=== PATIENT | female | born 1970 | race African-American/Black ===

== ENCOUNTER 2017-04-15 10:54 | Inpatient (IN) | payer OTHER ==
[~2017-04-15] VITALS: Ht 160 cm; Wt 77.1 kg
[~2017-04-15 10:54] MED LIST: BACTRIM DS1 TAB PO
[2017-04-15 13:04] LABS: BASOPHIL % 2.7 % (0-2); PLATELET COUNT 426 x10^3mcL (130-400); RED CELL DISTRIBUTION WIDTH 17.7 % (11.5-14.5)
[2017-04-15 13:10] LABS: CALCIUM 8.9 mg/dL (8.5-10.1); CARBON DIOXIDE 19.1 mmol/L (21-32); CREATININE SERUM 1.1 mg/dL (0.6-1.0); POTASSIUM SERUM 3.7 mmol/L (3.5-5.1)
[2017-04-15 13:14] LABS: ALBUMIN 3.4 g/dL (3.4-5.0); BILIRUBIN TOTAL 0.37 mg/dL (0.20-1.00); PHOSPHOROUS 1.3 mg/dL (2.5-4.9); TOTAL PROTEIN, SERUM 7.5 g/dL (6.4-8.2); URIC ACID 4.8 mg/dL (2.6-6.0)
[2017-04-15] MEDS ORDERED: NATURAL IRON65 MG PO (15:16)
[2017-04-15] MEDS ORDERED: SIMVASTATIN10 M1 (15:16)
[2017-04-15 15:36] LABS: AMPHETAMINE QUAL UR NONE DETECTED (NEG <=1000)
[2017-04-15 15:57] VITALS: BP 106/54
[2017-04-15 16:09] VITALS: Ht 160 cm; Wt 77.1 kg
[2017-04-15 16:45] VITALS: BP 135/79
[2017-04-15 17:18] LABS: UA SPECIFIC GRAVITY >=1.030 (1.005-1.035); microscopic required? YES; urine erythrocyte 3+ (NEGATIVE)
[2017-04-15 17:24] LABS: MAGNESIUM 1.7 mg/dL (1.8-2.4)
[2017-04-15 17:34] LABS: T3 TOTAL 0.98 ng/mL
[2017-04-15 17:38] LABS: FREE T4 1.06 ng/dL (0.76-1.46); FREE THYROXINE INDEX 2.7 ug/dL (1.4-4.5); T4(THYROXINE) 8.6 ug/dL (4.7-13.3)
[2017-04-15] MEDS ORDERED: GEMFIBROZIL600 MG PO (19:30)
[2017-04-15 21:49] VITALS: BP 124/68
[2017-04-16 06:21] VITALS: BP 130/78
[2017-04-16 06:22] LABS: CALCIUM 8.2 mg/dL (8.5-10.1); CARBON DIOXIDE 25.9 mmol/L (21-32); CHLORIDE SERUM 103 mmol/L (98-107); CREATININE SERUM 0.8 mg/dL (0.6-1.0); GFR1 > 60 mL/min; GLUCOSE SERUM 141 mg/dL (74-106); MAGNESIUM 1.8 mg/dL (1.8-2.4); PHOSPHOROUS 2.4 mg/dL (2.5-4.9); POTASSIUM SERUM 3.1 mmol/L (3.5-5.1); SODIUM SERUM 137 mmol/L (136-145)
[2017-04-16 06:28] LABS: BASOPHIL % 0.2 % (0-2); PLATELET COUNT 341 x10^3mcL (130-400)
[2017-04-16 07:28] LABS: RED CELL DISTRIBUTION WIDTH 18.3 % (11.5-14.5)
[2017-04-16 10:54] VITALS: BP 120/78
[2017-04-16 14:34] VITALS: BP 122/74
[2017-04-16] MEDS ORDERED: VITAMIN C100 M2 PO (15:44)
[2017-04-16 15:58] VITALS: BP 122/74
== END 2017-04-16 16:27 | disposition home or self-care (01) | DRG 776 ==
LOC: ED 10:54 → DU 15:10
PROVIDERS: Emergency Medicine; ADMIT Family Medicine
DX: F12.288 Cannabis dependence with other cannabis-induced disorder (principal); N17.0 Acute kidney failure with tubular necrosis; E83.39 Other disorders of phosphorus metabolism; R65.10 Systemic inflammatory response syndrome (SIRS) of non-infectious origin without acute organ dysfunction; D69.6 Thrombocytopenia, unspecified; D50.9 Iron deficiency anemia, unspecified; Z68.30 Body mass index [BMI] 30.0-30.9, adult; E78.00 Pure hypercholesterolemia, unspecified; R31.9 Hematuria, unspecified; E78.5 Hyperlipidemia, unspecified
CPT/HCPCS: 83880; 84439; J1956; J2405; J7030; J7040; Q0092